=== PATIENT | male | born 1980 | race African-American/Black ===

== ENCOUNTER 2017-04-25 05:37 | Day surgery (SDC) | payer MEDICAID ==
[~2017-04-25] VITALS: Ht 175.3 cm; Wt 70.3 kg
[2017-04-25 10:41] VITALS: BP 145/85; Ht 175.3 cm; Wt 70.3 kg
[2017-04-25] MEDS ORDERED: HYDROCODONE-APA1 TAB PO (13:25)
== END 2017-04-25 15:42 | disposition home or self-care (01) ==
LOC: D.OPS 05:37 → D.PAN 11:30 → D.OPS 11:30
DX: M65.4 Radial styloid tenosynovitis [de Quervain] (principal); I10 Essential (primary) hypertension; I48.91 Unspecified atrial fibrillation; Z01.812 Encounter for preprocedural laboratory examination

== ENCOUNTER 2017-05-26 11:39 | Emergency (ER) | payer MEDICAID ==
[2017-04-25 10:41] VITALS: BMI 22.9
[~2017-05-26 11:39] MED LIST: HYDROCODONE-APA1 TAB PO
== END 2017-05-26 12:14 | disposition home or self-care (01) ==
LOC: D.ER 11:39
DX: M79.641 Pain in right hand (principal); M25.50 Pain in unspecified joint; R60.0 Localized edema